=== PATIENT | female | born 1955 | race Caucasian/White ===

== ENCOUNTER 2020-09-04 09:46 | Outpatient (CLI) | payer MEDICARE, SELFPAY ==
--- NOTE | ~2020-09-04 | MM_ITS ---
EXAMINATION: MM screening haim BI w puneet HISTORY: Screening TECHNIQUE: Craniocaudal and mediolateral oblique 3-D tomosynthesis images were obtained and synthetic 2-D images were generated. CAD analysis was submitted and interpreted. COMPARISON: Comparison to multiple prior studies sequentially, with oldest reviewed study dated 08/06. BREAST PARENCHYMAL COMPOSITION: There are scattered areas of fibroglandular density. FINDINGS: There is no evidence of suspicious mass, calcification, or architectural distortion to sugg est malignancy in either breast. There has been no suspicious interval change. IMPRESSION: 1. No mammographic evidence of malignancy. 2. Recommend routine screening mammography in one year. BI-RADS Category 1: Negative Reviewed, dictated and finalized at location A.
--- NOTE | ~2020-09-04 | DEXA_ITS ---
Bone Density Report Name: Gucci Bella Age: 65 Sex: Female Ethnicity: White Date of : 1955 Indication: postmenopausal; hysterectomy; Referring Provider: Kellee Palomares Study: Bone densitometry was performed. Exam Date: September 04, 2020 Accession number: [id number] Bone Density: Region BMD T-score Z-score Classification AP Spine (L1-L4) 1.125 0.7 2.3 Normal Femoral Neck (Left) 0.735 -1.0 0.4 Normal Total Hip (Left) 0.973 0.3 1.4 Normal Total Hip Bilateral Avg 1.016 0.7 1.7 Normal Femoral Neck (Right) 0.751 -0.9 0.5 Normal Total Hip (Right) 1.058 1.0 2.1 Normal World Health Organization criteria for BMD impression classify patients as: Normal (T-score at or above -1.0), Osteopenia (T-score between -1.0 and -2.5), or Osteoporosis (T-score at or below -2.5). 10-year Fracture Risk: FRAX not reported because: All T-scores for Spine Total, Hip Total, Femoral Neck at or above -1.0 Previous Exams: Region Exam Age BMD T-score BMD Change BMD Change Date g/cm2 vs Baseline vs Previous AP Spine(L1-L4) 09/04/2020 65 1.125 0.7 0.038(3.5%)* 0.038(3.5%)* 09/26/2017 62 1.087 0.4 Total Hip(Left) 09/04/2020 65 0.973 0.3 -0.013(-1.3%) -0.013(-1.3%) 09/26/2017 62 0.986 0.4 Total Hip(Right) 09/04/2020 65 1.058 1.0 -0.005(-0.4%) -0.005(-0.4%) 09/26/2017 62 1.063 1.0 *Denotes significance at 95% confidence level, LSC for AP Spine = 0.022 g/cm2, LSC for Total Hip = 0.027 g/cm2 Clinical Information Provided by Patient: Has the following medical conditions: Hysterectomy Patient maximum height was 64 Menopause Age: 42 No regular weight bearing exercise Drinks caffeinated beverages Onset of menses at age 14 Number of children 1 Impression: The patient has normal bone mass. No significant bone loss was observed. Discussion: BONE DENSITY IS ABOVE THE MINIMUM DESIRABLE LEVEL AT ALL SKELETAL SITES TESTED. This patient?s bone mineral density is above the minimum desirable level (T-score -1.0 or better) at all sites measured. The patient should follow a healthful lifestyle (good nutrition with adequate calcium and vitamin D, and appropriate weight-bearing exercise). Follow-Up: Consider repeating this study in 5 years or sooner if there is some new clinical indication. Reported by: TJ on 09/04/2020 10:11:00 AM. Reviewed, dictated and finalized at location A. [facility]
== END 2020-09-04 09:47 | disposition home or self-care (01) ==
LOC: ANHIMG 09:47
PROVIDERS: PCP Family Medicine; Visit Provider Family Medicine
DX: Z12.31 Encounter for screening mammogram for malignant neoplasm of breast (principal); Z78.0 Asymptomatic menopausal state; Z90.710 Acquired absence of both cervix and uterus
CPT/HCPCS: 77063; 77067; 77080

== ENCOUNTER 2022-04-02 09:16 | Outpatient (CLI) | payer MEDICARE, SELFPAY ==
--- NOTE | ~2022-04-02 | XR_ITS ---
EXAM: XR shoulder RT min 2V HISTORY: M54.12 - Radiculopathy, cervical region COMPARISON: None available FINDINGS: Normal mineralization. No fracture or dislocation. No lytic or blastic lesion. Minimal acr omial tip enthesopathy. Mild glenohumeral joint space narrowing and subchondral sclerosis. No erosion or periosteal change. Soft tissues within normal limits. IMPRESSION: Mild degenerative changes, no other significant osseous finding in the right shoulder. Reviewed, dictated and finalized at location K. IMPRESSION: Mild degenerative changes, no other significant osseous finding in the right sh emmanuelle.
--- NOTE | ~2022-04-02 | XR_ITS ---
EXAM: XR cervical spine 4-5V HISTORY: M54.12 - Radiculopathy, cervical region COMPARISON: None available FINDINGS: Craniocervical association and atlantoaxial joint are aligned. Moderate degenerative braun e at the atlantodental interval. Mild reversal of the cervical lordosis centered at C6. Vertebral bod ies are aligned. Multilevel disc space narrowing, mild at C4-5 and C7-T1, moderate at at C5-6 and C6- 7. Multilevel facet arthropathy. IMPRESSION: Moderate degenerative disc disease at C5-6 and C6-7. Multilevel facet arthropathy. Reviewed, dictated and finalized at location K. IMPRESSION: Moderate degenerative disc disease at C5-6 and C6-7. Multilevel facet arthropat hy.
== END 2022-04-02 09:17 | disposition home or self-care (01) ==
PROVIDERS: PCP Family Medicine; Visit Provider Physician Assistant
DX: M54.12 Radiculopathy, cervical region (principal); M50.322 Other cervical disc degeneration at C5-C6 level; M50.323 Other cervical disc degeneration at C6-C7 level; M19.011 Primary osteoarthritis, right shoulder
CPT/HCPCS: 72050; 73030

== ENCOUNTER 2023-03-14 08:58 | Outpatient (CLI) | payer MEDICARE, SELFPAY ==
--- NOTE | ~2023-03-14 | MM_ITS ---
EXAMINATION: MM screening haim BI w puneet HISTORY: Screening mammogram TECHNIQUE: Craniocaudal and mediolateral oblique 3-D tomosynthesis images were obtained and synthetic 2-D images were generated. CAD analysis was submitted and interpreted. COMPARISON: 09/04/2020, 09/26/2017, 09/22/2016 bilateral screening mammogram examinations BREAST PARENCHYMAL COMPOSITION: There are scattered areas of fibroglandular density. FINDINGS: There is no evidence of suspicious mass, calcification, or architectural distortion to sugg est malignancy in either breast. There has been no suspicious interval change. IMPRESSION: 1. No mammographic evidence of malignancy. 2. Recommend routine screening mammography in one year. BI-RADS Category 1: Negative Reviewed, dictated and finalized at location A.
== END 2023-03-14 08:59 | disposition home or self-care (01) ==
PROVIDERS: PCP Family Medicine; Visit Provider Physician Assistant
DX: Z12.31 Encounter for screening mammogram for malignant neoplasm of breast (principal)
CPT/HCPCS: 77063; 77067

== ENCOUNTER 2024-08-13 08:18 | Outpatient (CLI) | payer MEDICARE, SELFPAY ==
--- NOTE | ~2024-08-13 | MM_ITS ---
CORRECTED REPORT corrected examination description to include w angeline [facility] 08/14/2024 This report was recreated on 08/14/2024. Original report was EXAMINATION: MM screening mammo BI w ANGELINE HISTORY: Screening TECHNIQUE: Craniocaudal and mediolateral oblique 3-D tomosynthesis images were obtained and synthetic 2-D images were generated. CAD analysis was submitted and interpreted. COMPARISON: Comparison to multiple prior studies sequentially, with oldest reviewed study dated 08/06/2015. BREAST PARENCHYMAL COMPOSITION: Not dense: There are scattered areas of fibroglandular density. FINDINGS: There is no evidence of suspicious mass, calcification, or architectural distortion to suggest malignancy in either breast. There has been no suspicious interval change. IMPRESSION: 1. No mammographic evidence of malignancy. 2. Recommend routine screening mammography in one year. BI-RADS Category 1: Negative Reviewed, dictated and finalized at location B. MTDD
== END 2024-08-13 08:19 | disposition home or self-care (01) ==
LOC: ANHIMG 08:19
PROVIDERS: PCP Family Medicine; Visit Provider Family Medicine
DX: Z12.31 Encounter for screening mammogram for malignant neoplasm of breast (principal)
CPT/HCPCS: 77063; 77067